=== PATIENT | female | born 1990 | race Caucasian/White ===

== ENCOUNTER 2018-04-06 17:24 | Inpatient (IN) | payer MEDICAID ==
[2018-04-06 19:06] LABS: ADD UMIC NO; UR ASCORBIC ACID NEGATIVE (NEGATIVE); UR BILIRUBIN (Dip) NEGATIVE (NEGATIVE); UR BLOOD (Dip) NEGATIVE (NEGATIVE); UR CLARITY CLEAR (CLEAR); UR COLOR YELLOW (YELLOW); UR GLUCOSE (Dip) NEGATIVE (NEGATIVE); UR KETONES (Dip) NEGATIVE (NEGATIVE); UR LEUKOCYTE ESTERASE (Dip) NEGATIVE Leu/ul (NEGATIVE); UR NITRITE (Dip) NEGATIVE (NEGATIVE); UR SPECIFIC GRAVITY (Dip) 1.018 (1.003-1.030); UR TOTAL PROTEIN (Dip) NEGATIVE (NEGATIVE); UR UROBILINOGEN (Dip) NEGATIVE (NEGATIVE)
[2018-04-06 20:06] LABS: ADD MAN DIFF? NO
[2018-04-06 20:27] LABS: ALANINE AMINOTRANSFERASE 96 IU/L (13-69); ALBUMIN 3.2 g/dl (3.3-4.9); ALBUMIN/GLOBULIN RATIO 0.86; ALKALINE PHOSPHATASE 440 IU/L (42-121); ANION GAP 10 (5-13); ASPARTATE AMINO TRANSFERASE 53 IU/L (15-46); BILIRUBIN,INDIRECT 0.1 mg/dl (0-1.1); BILIRUBIN,TOTAL 0.1 mg/dl (0.2-1.3); BLOOD UREA NITROGEN 12 mg/dl (7-20); CALCIUM 9.5 mg/dl (8.4-10.2); CARBON DIOXIDE 23 mmol/L (21-31); CHLORIDE 105 mmol/L (97-110); CREATININE 0.63 mg/dl (0.44-1.00); Estimated GFR > 60 mL/min (>60); GLUCOSE 102 mg/dl (70-220); POTASSIUM 4.6 mmol/L (3.5-5.1); SODIUM 138 mmol/L (135-144); TOTAL PROTEIN 6.9 g/dl (6.1-8.1)
[2018-04-06 20:28] LABS: WHITE BLOOD COUNT 7.7 10^3/ul (4.8-10.8)
[2018-04-06 20:28] LABS: BASOPHILS % 0.3 % (0.0-2.0); EOSINOPHILS # 0.1 10^3/ul (0.0-0.5); EOSINOPHILS % 0.8 % (0.0-7.0); HEMATOCRIT 37.7 % (37.0-47.0); HEMOGLOBIN 12.4 g/dl (12.0-16.0); LYMPHOCYTES # 1.8 10^3/ul (0.8-2.9); LYMPHOCYTES % 22.9 % (15.0-51.0); MEAN CORPUSCULAR HEMOGLOBIN 27.9 pg (29.0-33.0); MEAN CORPUSCULAR HGB CONC 32.9 g/dl (32.0-37.0); MEAN CORPUSCULAR VOLUME 84.9 fl (82.0-101.0); MEAN PLATELET VOLUME 9.8 fl (7.4-10.4); MONOCYTE # 0.4 10^3/ul (0.3-0.9); NEUTROPHIL # 5.4 10^3/ul (1.6-7.5); NEUTROPHILS % 70.1 % (39.0-77.0); PLATELET COUNT 418 10^3/UL (140-415); RED BLOOD COUNT 4.44 10^6/ul (4.20-5.40); RED CELL DISTRIBUTION WIDTH 13.9 % (11.5-14.5)
[2018-04-06 20:42] LABS: URIC ACID 4.5 mg/dl (3.1-7.9)
[2018-04-06] MEDS ORDERED: ACETAMINOPHEN 325 MG TAB PO (22:00)
[2018-04-06] MEDS ORDERED: AL HYDROX/MG HYDROX/SIMETH 30 ML CUP PO (22:00)
[2018-04-06] MEDS: URSODIOL 300 MG CAP PO (22:49)
[2018-04-06] MEDS: NACL 0.9% 3 ML SYG IV (23:05)
[2018-04-06 23:32] LABS: INR 0.88; PT RATIO 0.9
[2018-04-06 23:33] LABS: PARTIAL THROMBOPLASTIN TIME 26.5 Sec (23.0-35.0)
[2018-04-07 00:04] LABS: HEPATITIS B SURFACE ANTIGEN NEGATIVE (NEGATIVE)
[2018-04-07 06:56] LABS: ADD MAN DIFF? NO
[2018-04-07 07:05] LABS: BASOPHILS % 0.4 % (0.0-2.0); EOSINOPHILS # 0.1 10^3/ul (0.0-0.5); EOSINOPHILS % 1.2 % (0.0-7.0); HEMATOCRIT 36.6 % (37.0-47.0); HEMOGLOBIN 12.1 g/dl (12.0-16.0); LYMPHOCYTES # 1.8 10^3/ul (0.8-2.9); LYMPHOCYTES % 26.8 % (15.0-51.0); MEAN CORPUSCULAR HGB CONC 33.1 g/dl (32.0-37.0); MEAN CORPUSCULAR VOLUME 84.7 fl (82.0-101.0); MEAN PLATELET VOLUME 9.8 fl (7.4-10.4); MONOCYTE # 0.5 10^3/ul (0.3-0.9); MONOCYTES % 6.7 % (0.0-11.0); NEUTROPHIL # 4.3 10^3/ul (1.6-7.5); NEUTROPHILS % 64.2 % (39.0-77.0); PLATELET COUNT 416 10^3/UL (140-415); RED BLOOD COUNT 4.32 10^6/ul (4.20-5.40); RED CELL DISTRIBUTION WIDTH 13.7 % (11.5-14.5)
[2018-04-07 07:05] LABS: WHITE BLOOD COUNT 6.7 10^3/ul (4.8-10.8)
[2018-04-07 07:52] LABS: ALANINE AMINOTRANSFERASE 104 IU/L (13-69); ALBUMIN/GLOBULIN RATIO 0.83; ALKALINE PHOSPHATASE 437 IU/L (42-121); ANION GAP 11 (5-13); ASPARTATE AMINO TRANSFERASE 57 IU/L (15-46); BILIRUBIN,INDIRECT 0.1 mg/dl (0-1.1); BILIRUBIN,TOTAL 0.1 mg/dl (0.2-1.3); BLOOD UREA NITROGEN 10 mg/dl (7-20); CARBON DIOXIDE 20 mmol/L (21-31); CHLORIDE 107 mmol/L (97-110); CREATININE 0.58 mg/dl (0.44-1.00); Estimated GFR > 60 mL/min (>60); GLUCOSE 92 mg/dl (70-220); POTASSIUM 3.9 mmol/L (3.5-5.1); SODIUM 138 mmol/L (135-144); TOTAL PROTEIN 6.6 g/dl (6.1-8.1); URIC ACID 5.1 mg/dl (3.1-7.9)
[2018-04-07] MEDS: PRENATAL VITAMIN PO (09:28)
[2018-04-07] MEDS: URSODIOL 300 MG CAP PO ×3 (09:28→21:07)
[2018-04-07] MEDS ORDERED: DIPHENHYDRAMINE 50 MG INJ IM ×2 (14:30)
[2018-04-07] MEDS: NACL 0.9% 3 ML SYG IV (16:46)
[2018-04-07 16:48] LABS: RUPTURE FETAL MEMBRANES POSITIVE (NEGATIVE)
[2018-04-07] MEDS: DEXAMETHASONE 4 MG/ML 5 ML INJ IM (16:48)
[2018-04-07 16:52] LABS: RAPID PLASMA REAGIN NONREACTIVE (NR)
[2018-04-07] MEDS: DIPHENHYDRAMINE 50 MG INJ IV (19:39)
[2018-04-07 21:27] LABS: COLLECTION PERIOD 24 hrs
[2018-04-07 22:17] LABS: 24HR URINE TOTAL PROTEIN 598.5 mg/24hrs (42.0-225.0); VOLUME 2850 mls
[2018-04-08] MEDS: DEXAMETHASONE 4 MG/ML 5 ML INJ IM ×2 (05:42→18:37)
[2018-04-08 06:19] LABS: ADD MAN DIFF? NO
[2018-04-08 06:40] LABS: ALANINE AMINOTRANSFERASE 127 IU/L (13-69); ALBUMIN 3.2 g/dl (3.3-4.9); ALKALINE PHOSPHATASE 442 IU/L (42-121); ASPARTATE AMINO TRANSFERASE 66 IU/L (15-46); BILIRUBIN,INDIRECT 0.3 mg/dl (0-1.1); BILIRUBIN,TOTAL 0.3 mg/dl (0.2-1.3); TOTAL PROTEIN 6.9 g/dl (6.1-8.1)
[2018-04-08 06:43] LABS: WHITE BLOOD COUNT 8.4 10^3/ul (4.8-10.8)
[2018-04-08 06:43] LABS: BASOPHILS % 0.2 % (0.0-2.0); EOSINOPHILS % 0.1 % (0.0-7.0); HEMATOCRIT 37.2 % (37.0-47.0); HEMOGLOBIN 12.4 g/dl (12.0-16.0); LYMPHOCYTES # 1.5 10^3/ul (0.8-2.9); LYMPHOCYTES % 18.1 % (15.0-51.0); MEAN CORPUSCULAR HEMOGLOBIN 28.4 pg (29.0-33.0); MEAN CORPUSCULAR HGB CONC 33.3 g/dl (32.0-37.0); MEAN CORPUSCULAR VOLUME 85.3 fl (82.0-101.0); MEAN PLATELET VOLUME 9.6 fl (7.4-10.4); MONOCYTE # 0.4 10^3/ul (0.3-0.9); MONOCYTES % 4.5 % (0.0-11.0); NEUTROPHIL # 6.4 10^3/ul (1.6-7.5); NEUTROPHILS % 76.4 % (39.0-77.0); PLATELET COUNT 473 10^3/UL (140-415); RED BLOOD COUNT 4.36 10^6/ul (4.20-5.40); RED CELL DISTRIBUTION WIDTH 13.9 % (11.5-14.5)
[2018-04-08] MEDS: PRENATAL VITAMIN PO (10:40)
[2018-04-08] MEDS: URSODIOL 300 MG CAP PO ×3 (10:40→21:07)
[2018-04-09 06:07] LABS: ADD MAN DIFF? NO
[2018-04-09 06:10] LABS: BASOPHILS % 0.2 % (0.0-2.0); EOSINOPHILS % 0.1 % (0.0-7.0); HEMATOCRIT 35.3 % (37.0-47.0); HEMOGLOBIN 11.6 g/dl (12.0-16.0); LYMPHOCYTES # 1.7 10^3/ul (0.8-2.9); LYMPHOCYTES % 17.5 % (15.0-51.0); MEAN CORPUSCULAR HEMOGLOBIN 28.1 pg (29.0-33.0); MEAN CORPUSCULAR HGB CONC 32.9 g/dl (32.0-37.0); MEAN CORPUSCULAR VOLUME 85.5 fl (82.0-101.0); MEAN PLATELET VOLUME 9.7 fl (7.4-10.4); MONOCYTE # 0.5 10^3/ul (0.3-0.9); MONOCYTES % 5.3 % (0.0-11.0); NEUTROPHIL # 7.5 10^3/ul (1.6-7.5); NEUTROPHILS % 75.8 % (39.0-77.0); PLATELET COUNT 456 10^3/UL (140-415); RED BLOOD COUNT 4.13 10^6/ul (4.20-5.40); RED CELL DISTRIBUTION WIDTH 13.9 % (11.5-14.5)
[2018-04-09 06:10] LABS: WHITE BLOOD COUNT 9.9 10^3/ul (4.8-10.8)
[2018-04-09 06:37] LABS: ALANINE AMINOTRANSFERASE 151 IU/L (13-69); ALBUMIN 3.2 g/dl (3.3-4.9); ALBUMIN/GLOBULIN RATIO 0.91; ALKALINE PHOSPHATASE 401 IU/L (42-121); ANION GAP 6 (5-13); ASPARTATE AMINO TRANSFERASE 75 IU/L (15-46); BILIRUBIN,INDIRECT 0.1 mg/dl (0-1.1); BILIRUBIN,TOTAL 0.1 mg/dl (0.2-1.3); BLOOD UREA NITROGEN 12 mg/dl (7-20); CALCIUM 9.1 mg/dl (8.4-10.2); CARBON DIOXIDE 23 mmol/L (21-31); CHLORIDE 106 mmol/L (97-110); CREATININE 0.54 mg/dl (0.44-1.00); Estimated GFR > 60 mL/min (>60); GLUCOSE 95 mg/dl (70-220); POTASSIUM 4.1 mmol/L (3.5-5.1); SODIUM 135 mmol/L (135-144); TOTAL PROTEIN 6.7 g/dl (6.1-8.1)
[2018-04-09] MEDS: NACL 0.9% 3 ML SYG IV ×3 (06:46→20:16)
[2018-04-09] MEDS: DEXAMETHASONE 4 MG/ML 5 ML INJ IM (06:48)
[2018-04-09] MEDS: PRENATAL VITAMIN PO (09:15)
[2018-04-09] MEDS: URSODIOL 300 MG CAP PO ×3 (11:00→21:08)
[2018-04-10] MEDS: NACL 0.9% 3 ML SYG IV ×3 (08:11→16:55)
[2018-04-10] MEDS: URSODIOL 300 MG CAP PO ×3 (10:10→21:28)
[2018-04-10] MEDS: PRENATAL VITAMIN PO (10:10)
[2018-04-10 14:26] LABS: ADD MAN DIFF? NO
[2018-04-10 14:30] LABS: BASOPHILS % 0.5 % (0.0-2.0); EOSINOPHILS # 0.1 10^3/ul (0.0-0.5); EOSINOPHILS % 0.6 % (0.0-7.0); HEMATOCRIT 36.5 % (37.0-47.0); LYMPHOCYTES # 1.6 10^3/ul (0.8-2.9); LYMPHOCYTES % 20.5 % (15.0-51.0); MEAN CORPUSCULAR HGB CONC 32.9 g/dl (32.0-37.0); MEAN CORPUSCULAR VOLUME 85.1 fl (82.0-101.0); MEAN PLATELET VOLUME 9.5 fl (7.4-10.4); MONOCYTE # 0.6 10^3/ul (0.3-0.9); MONOCYTES % 7.1 % (0.0-11.0); NEUTROPHIL # 5.5 10^3/ul (1.6-7.5); NEUTROPHILS % 70.3 % (39.0-77.0); NUCLEATED RED BLOOD CELLS% 0.4 /100WBC (0.0-0.0); PLATELET COUNT 434 10^3/UL (140-415); RED BLOOD COUNT 4.29 10^6/ul (4.20-5.40); RED CELL DISTRIBUTION WIDTH 14.4 % (11.5-14.5)
[2018-04-10 14:30] LABS: WHITE BLOOD COUNT 7.8 10^3/ul (4.8-10.8)
[2018-04-10 14:46] LABS: ALANINE AMINOTRANSFERASE 147 IU/L (13-69); ALBUMIN 3.2 g/dl (3.3-4.9); ALBUMIN/GLOBULIN RATIO 0.88; ALKALINE PHOSPHATASE 377 IU/L (42-121); ANION GAP 11 (5-13); ASPARTATE AMINO TRANSFERASE 64 IU/L (15-46); BILIRUBIN,INDIRECT 0.1 mg/dl (0-1.1); BILIRUBIN,TOTAL 0.1 mg/dl (0.2-1.3); BLOOD UREA NITROGEN 14 mg/dl (7-20); CALCIUM 8.8 mg/dl (8.4-10.2); CARBON DIOXIDE 19 mmol/L (21-31); CHLORIDE 108 mmol/L (97-110); CREATININE 0.55 mg/dl (0.44-1.00); Estimated GFR > 60 mL/min (>60); GLUCOSE 77 mg/dl (70-220); POTASSIUM 4.2 mmol/L (3.5-5.1); SODIUM 138 mmol/L (135-144); TOTAL PROTEIN 6.8 g/dl (6.1-8.1)
[2018-04-10] MEDS: DIPHENHYDRAMINE 50 MG INJ IV (23:06)
[2018-04-11 06:14] LABS: ADD MAN DIFF? NO
[2018-04-11 06:17] LABS: BASOPHIL # 0.1 10^3/ul (0.0-0.1); BASOPHILS % 0.6 % (0.0-2.0); EOSINOPHILS # 0.1 10^3/ul (0.0-0.5); EOSINOPHILS % 1.1 % (0.0-7.0); HEMATOCRIT 36.5 % (37.0-47.0); HEMOGLOBIN 11.8 g/dl (12.0-16.0); LYMPHOCYTES # 1.9 10^3/ul (0.8-2.9); LYMPHOCYTES % 23.5 % (15.0-51.0); MEAN CORPUSCULAR HEMOGLOBIN 27.8 pg (29.0-33.0); MEAN CORPUSCULAR HGB CONC 32.3 g/dl (32.0-37.0); MEAN CORPUSCULAR VOLUME 85.9 fl (82.0-101.0); MEAN PLATELET VOLUME 9.6 fl (7.4-10.4); MONOCYTE # 0.6 10^3/ul (0.3-0.9); MONOCYTES % 7.3 % (0.0-11.0); NEUTROPHIL # 5.4 10^3/ul (1.6-7.5); NUCLEATED RED BLOOD CELLS% 0.4 /100WBC (0.0-0.0); PLATELET COUNT 424 10^3/UL (140-415); RED BLOOD COUNT 4.25 10^6/ul (4.20-5.40); RED CELL DISTRIBUTION WIDTH 14.5 % (11.5-14.5)
[2018-04-11 06:17] LABS: WHITE BLOOD COUNT 8.2 10^3/ul (4.8-10.8)
[2018-04-11 06:45] LABS: ALANINE AMINOTRANSFERASE 133 IU/L (13-69); ALBUMIN/GLOBULIN RATIO 0.88; ALKALINE PHOSPHATASE 358 IU/L (42-121); ANION GAP 10 (5-13); ASPARTATE AMINO TRANSFERASE 52 IU/L (15-46); BILIRUBIN,INDIRECT 0.1 mg/dl (0-1.1); BILIRUBIN,TOTAL 0.1 mg/dl (0.2-1.3); BLOOD UREA NITROGEN 15 mg/dl (7-20); CARBON DIOXIDE 21 mmol/L (21-31); CHLORIDE 108 mmol/L (97-110); CREATININE 0.56 mg/dl (0.44-1.00); Estimated GFR > 60 mL/min (>60); GLUCOSE 77 mg/dl (70-220); SODIUM 139 mmol/L (135-144); TOTAL PROTEIN 6.4 g/dl (6.1-8.1); URIC ACID 5.3 mg/dl (3.1-7.9)
[2018-04-11] MEDS: URSODIOL 300 MG CAP PO (09:47)
[2018-04-11] MEDS: PRENATAL VITAMIN PO (09:49)
[2018-04-11] MEDS ORDERED: CARBOPROST 250 MCG INJ IM ×2 (10:00→16:30)
[2018-04-11] MEDS ORDERED: METHYLERGONOVINE 0.2 MG INJ IM ×2 (10:00→16:30)
[2018-04-11] MEDS ORDERED: OXYTOCIN 30 UNITS/LR 500 ML IV ×6 (10:00→16:30)
[2018-04-11] MEDS ORDERED: MISOPROSTOL 50 MCG CAPSULE VAG (10:00)
[2018-04-11] MEDS ORDERED: MISOPROSTOL 200 MCG TAB PR ×2 (10:00→16:30)
[2018-04-11] MEDS ORDERED: BUTORPHANOL 2 MG INJ IV (10:00)
[2018-04-11] MEDS ORDERED: LIDOCAINE 1% (MPF) 30 ML INJ INJ (10:00)
[2018-04-11] MEDS: LACTATED RINGER'S 1,000 ML IV ×2 (10:44→13:27)
[2018-04-11] MEDS: AMPICILLIN 2 GM/NS (PMX) 100 ML IVPB (10:45)
[2018-04-11] MEDS: OXYTOCIN 30 UNITS/LR 500 ML IV ×4 (10:46→23:03)
[2018-04-11 10:56] LABS: CHENODEOXYCHOLIC ACID 8.9 umol/L (< OR = 3.1); DEOXYCHOLIC ACID <0.5 umol/L (< OR = 2.4); TOTAL BILE ACIDS 45.9 umol/L (< OR = 6.8)
[2018-04-11] MEDS: BUTORPHANOL 2 MG INJ IV (12:04)
[2018-04-11 12:18] LABS: ADD MAN DIFF? NO
[2018-04-11 12:20] LABS: BASOPHILS % 0.3 % (0.0-2.0); EOSINOPHILS # 0.1 10^3/ul (0.0-0.5); EOSINOPHILS % 0.6 % (0.0-7.0); HEMATOCRIT 36.8 % (37.0-47.0); HEMOGLOBIN 12.1 g/dl (12.0-16.0); LYMPHOCYTES # 1.8 10^3/ul (0.8-2.9); LYMPHOCYTES % 15.9 % (15.0-51.0); MEAN CORPUSCULAR HEMOGLOBIN 27.7 pg (29.0-33.0); MEAN CORPUSCULAR HGB CONC 32.9 g/dl (32.0-37.0); MEAN CORPUSCULAR VOLUME 84.2 fl (82.0-101.0); MEAN PLATELET VOLUME 9.2 fl (7.4-10.4); MONOCYTE # 0.9 10^3/ul (0.3-0.9); MONOCYTES % 7.6 % (0.0-11.0); NEUTROPHIL # 8.3 10^3/ul (1.6-7.5); NEUTROPHILS % 74.7 % (39.0-77.0); NUCLEATED RED BLOOD CELLS% 0.2 /100WBC (0.0-0.0); PLATELET COUNT 461 10^3/UL (140-415); RED BLOOD COUNT 4.37 10^6/ul (4.20-5.40); RED CELL DISTRIBUTION WIDTH 14.3 % (11.5-14.5)
[2018-04-11 12:20] LABS: WHITE BLOOD COUNT 11.2 10^3/ul (4.8-10.8)
[2018-04-11 12:40] LABS: INR 0.81; PROTIME 11.3 Sec (11.9-14.9); PT RATIO 0.9
[2018-04-11 12:41] LABS: PARTIAL THROMBOPLASTIN TIME 24.3 Sec (23.0-35.0)
[2018-04-11] MEDS ORDERED: CEFAZOLIN 2 GM/50 ML (PMX) 50 ML IVPB (13:00)
[2018-04-11] MEDS: AMPICILLIN 1 GM/NS (PMX) 50 ML IVPB ×3 (13:27→21:00)
[2018-04-11] MEDS ORDERED: FENTAnyl 2MCG/ML-ROPIV 0.2% 100 ML (14:03)
[2018-04-11 15:04] LABS: RAPID PLASMA REAGIN NONREACTIVE (NR)
[2018-04-11] MEDS ORDERED: LACTATED RINGER'S 1,000 ML IV* (16:22)
[2018-04-11] MEDS ORDERED: HYDROCODONE/APAP (5/325) TAB PO ×2 (16:30)
[2018-04-11] MEDS ORDERED: MAGNESIUM HYDROXIDE 30ML CUP PO (16:30)
[2018-04-11] MEDS ORDERED: METHYLERGONOVINE 0.2 MG TAB PO (16:30)
[2018-04-11] MEDS ORDERED: ZOLPIDEM 5 MG TAB PO (16:30)
[2018-04-11] MEDS ORDERED: NA PHOSPHATE/BIPHOS 133 ML ENEMA PR (16:30)
[2018-04-11] MEDS ORDERED: ONDANSETRON 4 MG INJ IV (16:30)
[2018-04-11 17:07] LABS: CBV Base Excess -5.4 mmol/L; CBV Oxygen Sat 77.6 mmHG; CBV Total Hemglobin 18.8 g/dl; Cord Blood Venous pO2 31.1 mmHG (15.0-45.0); MODE ROOM AIR; MetHgb Cord Venous 1.1 %; Sample Type CBV; Site CORD
[2018-04-11 17:08] LABS: Arterial Cord Blood pCO2 55.5 mmHG (25-50); CBA Base Excess -4.8 mmol/L; CBA COHb 0.5 %; CBA Oxygen Sat 48.9 mmHG; CBA Total Hemglobin 19.4 g/dl; Cord Blood Arterial pO2 22.3 mmHG (15.0-45.0); Fraction OxyHgb Cord Arterial 48.1 %; MODE ROOM AIR; MetHgb Cord Arterial 1.1 %; Sample Type CBA; Site CORD
[2018-04-11] MEDS ORDERED: MAGNESIUM SULFATE 4 GM/100 ML 100 ML (17:24)
[2018-04-11] MEDS: MAGNESIUM SULFATE 4 GM/100 ML 100 ML IV (17:30)
[2018-04-11] MEDS: MAGNESIUM SULFATE 20 GM/500 ML 500 ML IV (18:13)
[2018-04-11] MEDS: SENNA/DOCUSATE NA (8.6MG/50MG) TAB PO (20:51)
[2018-04-11] MEDS: LANOLIN HPA 1 PKT TOP (20:51)
[2018-04-11] MEDS: BENZOCAINE 20% 56 ML SPRAY TOP (20:52)
[2018-04-11] MEDS: WITCH HAZEL/GLYCERIN PAD PR (20:52)
[2018-04-12] MEDS: AMPICILLIN 1 GM/NS (PMX) 50 ML IVPB ×2 (01:00→05:00)
[2018-04-12 01:39] LABS: MAGNESIUM 5.3 mg/dl (1.7-2.5)
[2018-04-12] MEDS: MAGNESIUM SULFATE 20 GM/500 ML 500 ML IV (03:51)
[2018-04-12] MEDS: IBUPROFEN 800 MG TAB PO ×3 (04:56→19:42)
[2018-04-12] MEDS: LACTATED RINGER'S 1,000 ML IV ×3 (04:57→20:23)
[2018-04-12 06:23] LABS: ADD MAN DIFF? NO
[2018-04-12 06:29] LABS: WHITE BLOOD COUNT 15.7 10^3/ul (4.8-10.8)
[2018-04-12 06:29] LABS: BASOPHILS % 0.2 % (0.0-2.0); EOSINOPHILS # 0.1 10^3/ul (0.0-0.5); EOSINOPHILS % 0.3 % (0.0-7.0); HEMATOCRIT 31.5 % (37.0-47.0); HEMOGLOBIN 10.8 g/dl (12.0-16.0); LYMPHOCYTES # 1.7 10^3/ul (0.8-2.9); MEAN CORPUSCULAR HEMOGLOBIN 28.2 pg (29.0-33.0); MEAN CORPUSCULAR HGB CONC 34.3 g/dl (32.0-37.0); MEAN CORPUSCULAR VOLUME 82.2 fl (82.0-101.0); MEAN PLATELET VOLUME 9.3 fl (7.4-10.4); MONOCYTE # 0.8 10^3/ul (0.3-0.9); MONOCYTES % 5.2 % (0.0-11.0); NEUTROPHILS % 82.9 % (39.0-77.0); PLATELET COUNT 292 10^3/UL (140-415); RED BLOOD COUNT 3.83 10^6/ul (4.20-5.40); RED CELL DISTRIBUTION WIDTH 14.5 % (11.5-14.5)
[2018-04-12 06:50] LABS: MAGNESIUM 4.7 mg/dl (1.7-2.5)
[2018-04-12] MEDS: SENNA/DOCUSATE NA (8.6MG/50MG) TAB PO ×2 (10:08→21:29)
[2018-04-13] MEDS: LACTATED RINGER'S 1,000 ML IV ×2 (01:50→09:50)
[2018-04-13] MEDS: DIPHENHYDRAMINE 25 MG CAP PO (03:12)
[2018-04-13] MEDS: IBUPROFEN 800 MG TAB PO (07:55)
[2018-04-13 08:19] LABS: ADD MAN DIFF? NO
[2018-04-13 08:24] LABS: BASOPHILS % 0.3 % (0.0-2.0); EOSINOPHILS # 0.1 10^3/ul (0.0-0.5); EOSINOPHILS % 1.1 % (0.0-7.0); HEMATOCRIT 29.8 % (37.0-47.0); HEMOGLOBIN 9.7 g/dl (12.0-16.0); LYMPHOCYTES # 2.4 10^3/ul (0.8-2.9); LYMPHOCYTES % 20.6 % (15.0-51.0); MEAN CORPUSCULAR HEMOGLOBIN 27.6 pg (29.0-33.0); MEAN CORPUSCULAR HGB CONC 32.6 g/dl (32.0-37.0); MEAN CORPUSCULAR VOLUME 84.9 fl (82.0-101.0); MEAN PLATELET VOLUME 9.6 fl (7.4-10.4); MONOCYTE # 0.8 10^3/ul (0.3-0.9); MONOCYTES % 6.7 % (0.0-11.0); NEUTROPHIL # 8.1 10^3/ul (1.6-7.5); NEUTROPHILS % 70.5 % (39.0-77.0); PLATELET COUNT 315 10^3/UL (140-415); RED BLOOD COUNT 3.51 10^6/ul (4.20-5.40); RED CELL DISTRIBUTION WIDTH 15.2 % (11.5-14.5)
[2018-04-13 08:24] LABS: WHITE BLOOD COUNT 11.4 10^3/ul (4.8-10.8)
[2018-04-13 08:43] LABS: ALANINE AMINOTRANSFERASE 91 IU/L (13-69); ALBUMIN 2.7 g/dl (3.3-4.9); ALBUMIN/GLOBULIN RATIO 0.93; ALKALINE PHOSPHATASE 248 IU/L (42-121); ANION GAP 6 (5-13); ASPARTATE AMINO TRANSFERASE 43 IU/L (15-46); BLOOD UREA NITROGEN 14 mg/dl (7-20); CALCIUM 8.9 mg/dl (8.4-10.2); CARBON DIOXIDE 24 mmol/L (21-31); CHLORIDE 110 mmol/L (97-110); CREATININE 0.54 mg/dl (0.44-1.00); Estimated GFR > 60 mL/min (>60); GLUCOSE 72 mg/dl (70-220); POTASSIUM 3.7 mmol/L (3.5-5.1); SODIUM 140 mmol/L (135-144); TOTAL PROTEIN 5.6 g/dl (6.1-8.1)
[2018-04-13] MEDS: SENNA/DOCUSATE NA (8.6MG/50MG) TAB PO (09:55)
[2018-04-13] MEDS: MEASLES,MUMPS,RUBELLA VACCINE INJ SC* (09:55)
[2018-04-13] MEDS: DIPHTH/TET/ACEL PERTUSS (ADULT) 0.5 ML VIAL IM* (09:55)
[2018-04-13] MEDS: VARICELLA VACCINE LIVE/PF 1,350 UNIT/0.5 ML ML SC* (09:55)
== END 2018-04-13 17:35 | disposition home or self-care (01) | DRG 805 ==
LOC: OBT 17:24 → L-D 04-07 01:15 → PP1 04-11 18:04 → L-D 18:28 → OBT 21:17 → L-D 21:17
PROC: 10E0XZZ Delivery of Products of Conception, External Approach (ICD-10-PCS; principal; 2018-04-11)
PROC: 0W8NXZZ Division of Female Perineum, External Approach (ICD-10-PCS; 2018-04-11)
DX: O60.14X0 Preterm labor third trimester with preterm delivery third trimester, not applicable or unspecified (principal); K83.1 Obstruction of bile duct; Z37.0 Single live birth; O26.62 Liver and biliary tract disorders in childbirth; O14.14 Severe pre-eclampsia complicating childbirth; O76 Abnormality in fetal heart rate and rhythm complicating labor and delivery; Z3A.35 35 weeks gestation of pregnancy
CPT/HCPCS: 36415; 36600; 62319; 76705; 76815; 76816; 76817; 76818; 80053; 80076; 81003; 82803; 83735; 83789; 84112; 84156; 84560; 85025; 85610; 85730; 86592; 86850; 86900; 86901; 87086; 87340; 88307; 90716; 99464